=== PATIENT | female | born 1960 | race Caucasian/White ===

== ENCOUNTER 2021-11-22 15:29 | Observation (INO) ==
[2021-11-22 18:42] LABS: Basophils % 0.3 %; Eosinophils # 0.1 K/mcL (0.0-0.6); Eosinophils % 0.3 %; Hematocrit 36.5 % (35.3-44.9); Hemoglobin 11.9 g/dL (11.5-15.4); Immature Granulocytes % 0.7 % (0-4); Lymphocytes # 0.9 K/mcL (0.6-4.6); Mean Corpuscular HGB Conc 32.6 g/dL (31.6-35.5); Mean Corpuscular Hemoglobin 28.7 pg (28.0-33.3); Mean Platelet Volume 11.4 fL (9.4-12.4); Monocytes # 1.2 K/mcL (0.0-1.3); Monocytes % 8.3 %; Neutrophils # 12.3 K/mcL (1.6-8.9); Platelet Count 231 K/mcL (140-400); Red Blood Count 4.15 M/mcL (3.82-4.97); Red Cell Distribution Width 17.3 % (11.5-14.5); Segmented Neutrophils % 84.4 %; White Blood Count 14.6 K/mcL (4.3-11.1)
[2021-11-22 19:04] LABS: Alanine Aminotransferase 111 Units/L (7-52); Albumin 3.1 g/dL (3.5-5.7); Alkaline Phosphatase 918 Units/L (34-104); Aspartate Amino Transferase 184 Units/L (13-39); BUN/Creatinine Ratio 19 (6-26); Bilirubin,Total 10.5 mg/dL (0.3-1.0); Blood Urea Nitrogen 14 mg/dL (8-23); Calcium 7.9 mg/dL (8.6-10.3); Carbon Dioxide 31 mEq/L (23-29); Chloride 92 mEq/L (98-107); Glucose 116 mg/dL (70-105); Lipase 112 Units/L (11-82); Osmolality,Calculated 277 (280-300); Potassium 3.9 mEq/L (3.5-5.1); Sodium 133 mEq/L (136-145); Total Protein 6.1 g/dL (6.4-8.9); eGFR For African Americans > 60 (> 60); eGFR For Non-African Americans > 60 (> 60)
[2021-11-22] MEDS ORDERED: Gadolinium Contrast Agent (WT Based) IV PRN (22:37)
[2021-11-22] MEDS ORDERED: Ondansetron 4 MG/2 ML VIAL IVP PRN (22:39)
[2021-11-22] MEDS ORDERED: Naloxone 0.4 MG/ML INJ IVP PRN (22:39)
[2021-11-22] MEDS ORDERED: Melatonin 3 MG TABLET PO PRN (22:39)
[2021-11-22] MEDS ORDERED: 0.9 % Sodium Chloride 1,000 ML IVC ONE (23:49)
[2021-11-23 05:43] LABS: Basophils % 0.3 %; Eosinophils # 0.1 K/mcL (0.0-0.6); Eosinophils % 0.7 %; Hematocrit 35.9 % (35.3-44.9); Hemoglobin 11.9 g/dL (11.5-15.4); Immature Granulocytes % 0.7 % (0-4); Lymphocytes # 0.6 K/mcL (0.6-4.6); Lymphocytes % 4.4 %; Mean Corpuscular HGB Conc 33.1 g/dL (31.6-35.5); Mean Corpuscular Volume 87.3 fL (83.0-100.0); Mean Platelet Volume 11.7 fL (9.4-12.4); Monocytes # 1.1 K/mcL (0.0-1.3); Neutrophils # 11.8 K/mcL (1.6-8.9); Platelet Count 207 K/mcL (140-400); Red Blood Count 4.11 M/mcL (3.82-4.97); Red Cell Distribution Width 17.7 % (11.5-14.5); Segmented Neutrophils % 85.9 %; White Blood Count 13.7 K/mcL (4.3-11.1)
[2021-11-23 05:47] LABS: INR 1.6; Prothrombin Time 17.5 Seconds (9.4-12.1)
[2021-11-23 06:11] LABS: Alanine Aminotransferase 100 Units/L (7-52); Albumin 2.9 g/dL (3.5-5.7); Alkaline Phosphatase 875 Units/L (34-104); Aspartate Amino Transferase 164 Units/L (13-39); BUN/Creatinine Ratio 21 (6-26); Bilirubin,Direct 6.7 mg/dL (0.0-0.2); Bilirubin,Total 10.7 mg/dL (0.3-1.0); Blood Urea Nitrogen 14 mg/dL (8-23); Calcium 7.7 mg/dL (8.6-10.3); Carbon Dioxide 26 mEq/L (23-29); Chloride 95 mEq/L (98-107); Globulin 2.8 g/dL (2.4-3.5); Glucose 96 mg/dL (70-105); Osmolality,Calculated 270 (280-300); Phosphorous 2.8 mg/dL (2.7-4.5); Potassium 3.8 mEq/L (3.5-5.1); Sodium 130 mEq/L (136-145); Total Protein 5.7 g/dL (6.4-8.9); eGFR For African Americans > 60 (> 60); eGFR For Non-African Americans > 60 (> 60)
[2021-11-24 07:58] VITALS: BP 108/67; PULSE 94; TEMP 98.4; O2SAT 97
[2021-11-24] MEDS ORDERED: Ondansetron ODT 4 MG TAB.RAPDIS SL PRN (10:36)
== END 2021-11-24 13:33 | disposition hospice, home (50) ==
LOC: 3ANU 15:29 → EMEROOARM 15:29 → SUATTDRO 19:48 → 3ANU 21:29
PROVIDERS: ADMIT Internal Medicine; ATTEND Family Medicine